=== PATIENT | male | born 2005 | race Caucasian/White ===

== ENCOUNTER 2024-09-16 14:05 | Emergency (ER) | payer OTHER, BC ==
[~2024-09-16] VITALS: Ht 175.3 cm; Wt 61.2 kg
[~2024-09-16 14:05] MED LIST: CODACEE120 PO
[2024-09-16 14:31] VITALS: BP 128/95
[2024-09-16] MEDS ORDERED: IBU800 MG PO (14:36)
== END 2024-09-16 14:43 | disposition home or self-care (01) ==
LOC: ER 14:05
DX: M77.9 Enthesopathy, unspecified (principal)
CPT/HCPCS: 99283